=== PATIENT | female | born 1975 | race African-American/Black ===

== ENCOUNTER 2018-03-07 00:50 | Day surgery (SDC) | payer OTHER ==
[~2018-03-07] VITALS: Ht 175.3 cm; Wt 90.7 kg
[~2018-03-07 00:50] MED LIST: DESO1TAB41 PO; FEXO-67 PO; FLUT16SP19 NS; MULT-19 PO; NAPR-1043 PO
[2018-03-07 05:50] VITALS: BP 149/107
[2018-03-07] MEDS ORDERED: FAMOTIDINE 20 MG TAB PO ONE (06:00)
[2018-03-07] MEDS ORDERED: MIDAZOLAM 2 MG/2 ML VIAL IVP PRN (06:00)
[2018-03-07] MEDS ORDERED: LIDOCAINE/SOD BICARB 8.4% SYR ID ONE (06:00)
[2018-03-07] MEDS ORDERED: ceFAZolin(*) 2GM/D5W 50ML 50 ML IVPB ONE (06:00)
[2018-03-07] MEDS ORDERED: NORMOSOL R SOLN(*) 1000 ML BAG 1,000 ML IV PRN (06:00)
[2018-03-07] MEDS ORDERED: LIDOCAINE MPF 1% 5 ML VIAL ONE (06:05)
[2018-03-07] MEDS ORDERED: PROPOFOL EMUL(*) 10MG/ML 20 ML 20 ML ONE (06:05)
[2018-03-07] MEDS ORDERED: DEXAMETHASONE SOD 4 MG/ML VIAL ONE (06:05)
[2018-03-07] MEDS ORDERED: fentaNYL CITR 100 MCG/2 ML AMP ONE ×2 (06:05→07:57)
[2018-03-07] MEDS ORDERED: ONDANSETRON 4 MG/2 ML VIAL ONE (06:05)
[2018-03-07] MEDS ORDERED: METOCLOPRAMIDE 10 MG/2 ML SDV ONE (06:05)
[2018-03-07] MEDS ORDERED: BUPIVACAIN 0.25% INJ 50ML VIAL ONE (06:10)
[2018-03-07] MEDS ORDERED: MORPHINE 10 MG/ML SYR ONE (06:10)
[2018-03-07] MEDS ORDERED: NS(*) 0.9% 10 ML VIAL 10 ML ONE (06:11)
[2018-03-07] MEDS ORDERED: BUPIV/EPI 0.25% 1:200,000 50ML INFIL ONE (06:11)
[2018-03-07] MEDS ORDERED: LIDO/EPI 1% MDV 1:100,000 20ML INFIL ONE (06:11)
[2018-03-07] MEDS: LABETALOL HCL 100 MG/20ML VIAL ONE (07:54)
[2018-03-07] MEDS ORDERED: HYDR-4309 PO (08:17)
[2018-03-07] MEDS ORDERED: CEPH500T7 PO (08:19)
[2018-03-07 08:32] VITALS: BP 148/104
[2018-03-07] MEDS ORDERED: APAP/HYDROCODONE 325/5 TAB ONE (08:38)
[2018-03-07 09:00] VITALS: BP 136/96
[2018-03-07 09:01] VITALS: BP 138/102
--- NOTE | 2018-03-07 14:25 | OPERATIVE REPORT 1 ---
EVENT DATE: March 07/2018 SURGEON: Eladio Jarvis M.D. ANESTHESIOLOGIST: Yesenia Colón MD ANESTHESIA: LMA AIRPORT MAINTENANCE LABORER: MATTHIEU Brito PREOPERATIVE DIAGNOSIS 1. Right knee medial and lateral meniscus tears. 2. Chondromalacia. POSTOPERATIVE DIAGNOSIS 1. Right knee medial and lateral meniscus tears. 2. Chondromalacia. 3. Grade 4 change of lateral tibial plateau, medial aspect. PROCEDURE PERFORMED 1. Right knee arthroscopy with partial medial and lateral meniscectomies. 2. Microfracture of lateral tibial plateau. 3. Chondroplasty, tricompartmental. ESTIMATED BLOOD LOSS Minimal. COMPLICATIONS None. DRAINS None. SPECIMEN None. TOURNIQUET TIME 18 minutes. IMPLANTS USED None. HISTORY Ms. Jackson is a 42-year-old female with a history of right knee pain. She was seen and evaluated and found to have a complex tearing of the posterior horn of medial and lateral meniscus with some chondromalacia. Following discussion, the risks, benefits, alternatives and possible complications of surgical and nonsurgical intervention and wished to proceed with surgical intervention. DESCRIPTION OF PROCEDURE The patient was brought to the operating room and placed on the operating table in supine position. Proper time-out was performed to identify patient, surgeon and surgical procedure. The patient was given preoperative IV antibiotics and underwent LMA anesthesia. Well-padded thigh tourniquet was placed on the right lower extremity. The right lower extremity was prepped and draped in sterile fashion. Knee examination demonstrated negative Sharmila's, negative anterior and posterior drawer. MCL and ACL were stable preoperatively and postoperatively. Once complete, the leg was elevated and tourniquet brought up to 3 mmHg. Superior medial portal was established. The knee was insufflated. Distal and lateral camera portal was established. The camera was placed intra- articularly. Suprapatellar pouch demonstrated no major loose bodies. Medial and lateral gutters were clear. The patella demonstrated diffuse Grade 2 chondral wear. Trochlea was in better condition. The patella tracked centrally to 30-90 degrees of engagement. The medial compartment was visualized. Medial portal was established under direct visualization. A probe was placed intra-articularly. There was extensive tearing of the body and posterior horn of the medial meniscus. This was a nonrepairable type tear. This had two horizontal oblique cleavage tears. These were debrided with a combination of meniscal biters and abdulaziz until stable transpositions were obtained. There was mild Grade 2 chondral wear on the femur. This was debrided with shave until stable tissue was obtained. The ACL and PCL were probed and felt to be stable. The lateral compartment was visualized. Lateral meniscus demonstrates significant tearing of the posterior horn body and anterior horn with some significant Grade 3 and 4 change on the medial aspect of the lateral tibial plateau. The meniscus was debrided with meniscus biters and abdulaziz until smooth transitions were obtained. Chondroplasty was performed on the tibial plateau until stable articular cartilage transitions were obtained. The area of Grade 4 change was then microfractured with 45 degree microfracture awl until bleeding of subchondral bone was established. Once complete, chondroplasty was performed on the undersurface of the patella through both the medial and lateral portals until stable articular cartilage was obtained. Once complete, all instrumentation was removed. The knee was drained. Portal sites were closed with 4-0 Monocryl. Standard postoperative anesthetic cocktail was injected intra-articularly. Postoperative dressing, ice band, T-scope hinged knee brace locked in extension were applied. Ms. Jackson tolerated the procedure well and was extubated and transferred to the back in stable in stable condition. She will be placed on my microfracture protocol and follow up with me in 7-14 days. MOSES
== END 2018-03-07 08:32 | disposition home or self-care (01) ==
LOC: OR 00:50
PROVIDERS: ATTEND Orthopaedic Surgery
DX: S83.281A Other tear of lateral meniscus, current injury, right knee, initial encounter (principal); S83.241A Other tear of medial meniscus, current injury, right knee, initial encounter
CPT/HCPCS: 29879; 29880; 81025; 97116; J1100; J2001; J2270; J2405; J2704; J2765; J3010; J3490; L1832; J0690